=== PATIENT | male | born 1940 | race Caucasian/White ===

== ENCOUNTER 2019-12-13 07:49 | Observation (INO) | payer MEDICARE, OTHER ==
[2019-12-09 14:22] LABS: BASOPHILS # (AUTO) 0.1 (0.0-0.1); BASOPHILS % 1.2 % (0.0-1.0); EOSINOPHILS # (AUTO) 0.2 (0.0-0.4); EOSINOPHILS % 3.1 % (0.0-6.0); HEMATOCRIT 42.5 % (38.2-49.6); LYMPHOCYTES # (AUTO) 1.7 (1.0-3.2); LYMPHOCYTES % 31.7 % (18.0-39.1); MEAN CORPUSCULAR HEMOGLOBIN 28.1 pg (28-32); MEAN CORPUSCULAR HGB CONC 32.9 g/dL (31-35); MEAN CORPUSCULAR VOLUME 85.2 fL (81-99); MONOCYTES # (AUTO) 0.7 (0.2-0.8); MONOCYTES % 13.8 % (4.4-11.3); NEUTROPHILS # (AUTO) 2.6 (2.1-6.9); PLATELET COUNT 169 x10e3/uL (140-360); RED BLOOD COUNT 4.99 x10e6/uL (4.3-5.7); RED CELL DISTRIBUTION WIDTH 12.6 % (11.7-14.4)
[2019-12-09 14:37] LABS: ANION GAP 15.4 mmol/L (8-16); BLOOD UREA NITROGEN 48 mg/dL (7-26); BUN/CREATININE RATIO 52 (6-25); CALCIUM 9.6 mg/dL (8.4-10.2); CARBON DIOXIDE 28 mmol/L (22-29); CHLORIDE 99 mmol/L (98-107); CREATININE, SERUM 0.92 mg/dL (0.72-1.25); EST GLOMERULAR FILTRATION RATE > 60 ML/MIN (60-); GLUCOSE 97 mg/dL (74-118); POTASSIUM 4.4 mmol/L (3.5-5.1); SODIUM 138 mmol/L (136-145)
--- NOTE | 2019-12-09 14:39 | Diagnostic Imaging Report ---
EXAM: CHEST 2 VIEWS DATE: 12/09/2019 2:09 PM INDICATION: Preoperative evaluation COMPARISON: 03/02/2016 FINDINGS: The trachea is midline. The lungs are symmetrically expanded without evidence for large focal consolidation, pneumothorax, or significant pleural effusion. The cardiomediastinal silhouette is stable in appearance. Atherosclerotic calcifications are noted within the aortic arch. There are degenerative changes of the visualized spine. No acute osseous abnormality is identified. Surgical clips noted within the right upper quadrant. IMPRESSION: No acute cardiopulmonary process identified. Signed by: Dr. Alejandro Coronado MD on 12/09/2019 2:36 PM
[2019-12-13] VITALS (8 sets, daily range): BP systolic 106–149; BP diastolic 54–89
[~2019-12-13] VITALS: Ht 172.7 cm; Wt 111.1 kg
[~2019-12-13 07:49] MED LIST: AMBIEN10 MG PO; AMLODIPINE BESY10 MG PO; AMLODIPINE BESYL5 MG PO; ASPIR 8181 MG PO; ATORVASTATIN CA40 MG PO; CARAFATE1 GM PO; DEXILANT60 MG PO; DIOVAN320 MG PO; ELIQUIS5 MG PO; EXFORGE 10-3201 EACH PO; FLOMAX0.4 MG PO; FUROSEMIDE40 MG PO; NORCO 10-325 T1 EACH PO; PANTOPRAZOLE SO40 MG PO; PLAVIX75 MG PO; VIIBRYD1 EACH
[2019-12-13] MEDS ORDERED: LIDOCAINE 1% W/EPINEPHRINE 20 ML VIAL ONE ×2 (09:30→10:50)
[2019-12-13] MEDS ORDERED: MIDAZOLAM HCL 2 MG/2 ML VIAL ONE (09:30)
[2019-12-13] MEDS ORDERED: FENTANYL CITRATE/PF 100MCG/2 ML INJ ONE (09:31)
[2019-12-13] MEDS ORDERED: BACITRACIN 50,000 UNIT VIAL ONE (09:31)
[2019-12-13] MEDS ORDERED: CEFAZOLIN SOD 1 GM VIAL ONE (09:32)
[2019-12-13] MEDS ORDERED: SODIUM CHLORIDE 0.9% 500ML 1,000 ML ONE (09:33)
[2019-12-13] MEDS ORDERED: SODIUM CHLORIDE 0.9% 50ML 50 ML ONE (09:33)
[2019-12-13] MEDS ORDERED: SODIUM CHLORIDE 0.9% 1000ML 1,000 ML ONE (09:33)
[2019-12-13 09:45] LABS: INR 1.02
[2019-12-13 09:46] LABS: PARTIAL THROMBOPLASTIN TIME 35.1 seconds (23.8-35.5)
[2019-12-13] MEDS ORDERED: DIAZEPAM 5 MG TAB ONE (09:49)
[2019-12-13] MEDS ORDERED: METOPROLOL TARTRATE INJ 1 MG/ML VIAL ONE ×2 (11:24→11:27)
[2019-12-13] MEDS ORDERED: CLONIDINE HCL 0.1 MG TAB PO PRN (11:45)
[2019-12-13] MEDS: ATENOLOL 50 MG TAB PO SCH ×2 (11:45→17:30)
--- OUTSIDE RECORDS SUMMARY | 2019-12-13 11:55 | XMS REPORT | Continuity of Care Document ---
Author Author [facility] t Organization [facility] Address [address] [place] [address] Phone Unavailable Care Team Providers Care Clearance Rep Name Role Phone Leatha Olson DO PCP GEETHA AUGUSTE Attphys Unavailable Leatha Olson DO Attphys [phone] Payers Payer Name Policy Type Policy Number Effective Date Expiration Date S anu UHC MEDICAREUHC MEDICARE HMO/PPOxxxxxxxxx2017-[id number] xxxxxxxxx 2017 00:00:00 Naresh Sam Problems Condition Name Condition Details Condition Category Status Onset Date Resolution Date Last Treatment Date Treating Clinician Comments Source Primary hypertension Primary hypertension Disease Active 00:00:00 Naresh Sam 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 Dis ease Active 2018-03-19 00:00:00 Naresh Sam Chest pain in adult Chest pain in adult Disease Active 2018-03-18 00:00 :00 Naresh Sam Diarrhea of presumed infectious origin Diarrhea of presumed infectious origin Disease Active 2018-03-18 00:00:00 Naresh Sam Chronic atrial fibrillation Chronic atrial fibrillation Disease Active 2018-03-18 00:00:00 Naresh Sam Allergies, Adverse Reactions, Alerts Allergy Name Allergy Type Status Severity Reaction(s) Onset Date Inacti ve Date Treating Clinician Comments Source Nitrofurantoin Monohyd/M-Cryst Propensity to adverse reactions to d rug Active GI Intolerance 2018-03-18 00:00:00 [place] [facility] Metronidazole Propensity to adverse reactions to drug Active GI Intolerance 2018-03-18 00:00:00 [facility] Tetanus Vaccines And Toxoid Propensity to adverse reactions to drug A ctive 2018-03-18 00:00:00 [facility] Marshall-Dur Propensity to adverse reactions to drug Active 2018-03-18 00:00:00 Naresh Sam Social History Social Habit Start Date Stop Date Quantity Comments Source History of tobacco use Current smoker Naresh Sam Sex Assigned At [facility] Cigarettes smoked current (pack per day) - Reported 00:00:00 2019-04-30 00:00:00 Naresh Sam Cigarette pack-years 2019-04-30 00:00:00 2019-04-30 00:00:00 Naresh Sam Alcohol intake 2019-04-30 00:00:00 2019-04-30 00:00:00 Current non-drinker of alcohol (finding) Naresh Sam Smoking Status Start Date Stop Date Source Former smoker 2019-04-30 00:00:00 2019-04-30 00:00:00 Naresh Sam Medications Ordered Medication Name Filled Medication Name Start Date Stop Da te Current Medication? Ordering Clinician Indication Dosage Frequency Signature (SIG) Comments Components Source amLODIPine (NORVASC) 5 mg tablet 2019-04-30 10:14:48 Yes 5mg QD Take 5 mg by mouth daily. Naresh Sam apixaban (ELIQUIS) 5 mg tablet 2019-04-30 10:14:48 Yes 5mg Q.5D Take 5 mg by mouth 2 (two) times a day. Naresh Sam metoprolol succinate XL (TOPROL-XL) 25 mg 24 hr tablet 2019-04-30 10:14:48 Yes 25mg QD Take 25 mg by mouth daily. Naresh Sam furosemide (LASIX) 40 mg tablet 2019-04-30 10:14:48 Yes 40mg Q.[id number] Take 40 mg by mouth 3 (three) times a day. Naresh Sam tamsulosin (FLOMAX) 0.4 mg capsule 2019-04-30 10:14:48 Yes .4mg QD Take 0.4 mg by mouth daily. Naresh Sam ergocalciferol, vitamin D2, (VITAMIN D2 ORAL) 2019-04-30 10:14:4 8 Yes 1{tbl} QD Take 1 tablet by mouth daily. Naresh Sam cyanocobalamin, vitamin B-12, (VITAMIN B-12 ORAL) 2019-04-30 10:14:48 Yes 1{tbl} QD Take 1 tablet by mouth daily. Naresh Sam promethazine-codeine (PHENERGAN with CODEINE) 6.25-10 mg/5 m L syrup 2019-04-30 00:00:00 2019-05-07 23:59:00 No acute pain Acute Pain, Cough. TK 5 ML PO Q 8 H PRN. Limit 15 ML IN 24 H Naresh wagner olmesartan (BENICAR) 40 MG tablet 2019-04-25 09:27:59 Yes 40mg QD Take 40 mg by mouth daily. Naresh Sam benzonatate (TESSALON) 100 MG capsule 2019-04-25 00:00:00 Yes Cough 100mg Q.[id number] Take 1 capsule (100 mg total) by mouth 3 (three) times a day as needed for cough for up to 30 doses. Naresh Sam albuterol (PROAIR HFA) 90 mcg/actuation inhaler 2019-04-25 00:00:00 2020-04-24 23:59:00 No Cough 2{puff} Q6H Inhale 2 puffs every 6 (six) hours as needed for wheezing. Naresh Sam methylPREDNISolone (MEDROL, OBED,) 4 mg tablet 20 27-04-17 00:00:00 2019-04-30 23:59:00 No Cough follow package directions Naresh Sam promethazine-codeine (PHENERGAN with CODEINE) 6.25-10 mg/5 m L syrup 2019-04-17 00:00:00 2019-04-30 00:00:00 No Cough TK 5 ML PO Q 6 H PRN. NTE 30 ML IN 24 H Naresh Sam Immunizations Ordered Immunization Name Filled Immunization Name Date Status Comments Source FLUCELVAX QUAD PF 2018-03-20 00:00:00 Completed Naresh Sam Vital Signs Vital Name Observation Time Observation Value Comments Source Systolic blood pressure 2019-04-30 10:09:00 135 mm[Hg] Naresh Sam Diastolic blood pressure 2019-04-30 10:09:00 77 mm[Hg] Naresh Sam Heart rate 2019-04-30 10:09:00 85 /min Naresh Sam Body temperature 2019-04-30 10:09:00 37.06 [place] [facility] Respiratory rate 2019-04-30 10:09:00 18 /min Flore[facility]i [facility] Body height 2019-04-30 10:09:00 172.7 cm [place] [facility] Body weight 2019-04-30 10:09:00 90.719 kg Naresh Sam BMI 2019-04-30 10:09:00 30.41 kg/m2 Naresh Sam Oxygen saturation in Arterial blood by Pulse oximetry 2018-07 10:09:00 97 /min Naresh Sam Procedures Procedure Date / Time Performed Performing Clinician Sourc e XR CHEST 2 VW 2019-04-25 11:34:46 Zhou Olson CBC WITH PLATELET AND DIFFERENTIAL 2019-04-25 09:59:00 Zhou Salamanca Plan of Care Planned Activity Planned Date Details Comments Source Future Scheduled Test 2020-02-08 00:00:00 INFLUENZA VACCINE [code = INFLUENZA VACCINE] Naresh Sam Future Scheduled Test 2005 00:00:00 65+ PNEUMOCOCCAL V ACCINE (1 of 2 - PCV13) [code = 65+ PNEUMOCOCCAL VACCINE (1 of 2 - PCV13)] Naresh Sam Future Scheduled Test 1990 00:00:00 SHINGLES VACCINES (#1) [code = SHINGLES VACCINES (#1)] Naresh Sam Results Test Description Test Time Test Comments Results Result Comments Source CHEST 2 VIEWS 2019-12-09 14:35:00 [facility] [address] [place] [address] Patient Name: LYNNE IRBY MR #: [id number] : 1940 Age/Sex: 79/M Req #: [id number] Adm Physician: Ordered by: GEETHA AUGUSTE MD Report #: [id number] 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 The lungs are symmetrically expanded without evidence for large focal consolidation, pneumothorax, or significant pleural effusion. The cardiomediastinal silhouette is stable in appearance. Atherosclerotic calcifications are noted within the aortic arch. There are degenerative changes of the visualized spine. No acute osseous abnormality is identified. Surgical clips noted within the right upper quadrant. IMPRESSION: No acute cardiopulmonary process identified. Signed by: Dr. Alejandro Coronado MD on 12/09/2019 2:36 PM Dictated By: ALEJANDRO CORONADO MD 143 Transcribed By: DAMIR on 12/09/19 1436 COPY TO: GEETHA AUGUSTE MD CBC with platelet and differential 2019-04-26 01:44:00 Test Item WBC (test code = 6690-2) 7.5 3.8- 10.8 Thousand/uL RBC (test code = 789-8) 4.61 4.20- 5.80 Million/uL HGB (test code = 718-7) 13.6 g/dL 13.2-17.1 HCT (test code = 4544-3) 40.9 % 38.5-50 MCV (test code = 787-2) 88.7 fL 80-100 MCH (test code = 785-6) 29.5 pg 27-33 MCHC (test code = 786-4) 33.3 g/dL 32-36 RDW (test code = 788-0) 13.1 % 11-15 Platelet count (test code = 777-3) 284 140- 400 Thousand/u L MPV (test code = 776-5) 9.3 fL 7.5-12.5 Neutrophils, absolute (test code = 751-8) 5370 1,500 - 7,80 0 cells/uL Lymphocytes, absolute (test code = 731-0) 1170 850- 3,900 c ells/uL Monocytes, absolute (test code = 742-7) 795 200- 950 cells /uL Eosinophils, absolute (test code = 711-2) 98 15- 500 cell s/uL Basophils, absolute (test code = 704-7) 68 0- 200 cells/u L Neutrophils (test code = 770-8) 71.6 % Lymphocytes (test code = 736-9) 15.6 % Monocytes (test code = 5905-5) 10.6 % Eosinophils (test code = 713-8) 1.3 % Basophils + RC (test code = 706-2) 0.9 % WOLF (test code = WOLF) FASTING:YESFASTING: YES RAC (test code = RAC) Performing Organization Info rmation: Site ID: [id number] Name: [facility] Address: [address] [place] [id number] Director: Chavez SamXR Chest 2 [id number] 11:47:42Hm Interface, Radiology Results Incoming - 04/25/2019 11:50 AM CDTEXAMINATION: XR CHEST 2 VWCLINICAL HISTORY: R05 Cough, Cough new onsetCOMPARISON: To previous study from 03/18/2018IMPRESSION:The cardiomediastinal silhouette is normal in appearance.The lungs are clear. There is no evidence of consolidation, congestion, or pneumothorax.A pleural effusion is not present.Arthritic changes are noted involving the spine. [id number] [facility]
--- OUTSIDE RECORDS SUMMARY | 2019-12-13 11:55 | XMS REPORT | Clinical Summary ---
Author Author [facility] Organization [facility] Address Unknown Phone Unavailable Care Team Providers Care Geography Professor Name Role Phone Zhou Olson DO PCP Allergies Comments Active Allergy Reactions Severity Noted Date Nitrofurantoin GI Medium 03/18/2018 Monohyd/M-Cryst Intolerance Metronidazole GI Medium 03/18/2018 Intolerance Tetanus Vaccines And 03/18/2018 Toxoid Marshall-Dur 03/18/2018 Medications End Date Status Medication Sig Dispensed Refills Start Date Active olmesartan (BENICAR) 40 Take 40 mg by 0 MG tablet mouth daily. Active amLODIPine (NORVASC) 5 mg Take 5 mg by 0 tablet mouth daily. Active apixaban (ELIQUIS) 5 mg Take 5 mg by 0 tablet mouth 2 (two) times a day. Active metoprolol succinate XL Take 25 mg by 0 (TOPROL-XL) 25 mg 24 hr mouth daily. tablet Active furosemide (LASIX) 40 mg Take 40 mg by 0 tablet mouth 3 (three) times a day. Active tamsulosin (FLOMAX) 0.4 Take 0.4 mg 0 mg capsule by mouth daily. Active ergocalciferol, vitamin Take 1 tablet 0 D2, (VITAMIN D2 ORAL) by mouth daily. Active cyanocobalamin, vitamin Take 1 tablet 0 B-12, (VITAMIN B-12 ORAL) by mouth daily. Active benzonatate (TESSALON) Take 1 30 capsule 0 100 MG capsule (100 9 capsuleIndications: Cough mg total) by mouth 3 (three) times a day as needed for cough for up to 30 doses. 04/24/2020 Active albuterol (PROAIR HFA) 90 Inhale 2 18 g 0 mcg/actuation puffs every 6 9 inhalerIndications: Cough (six) hours as needed for wheezing. 04/30/2019 Discontinued (Reorder) promethazine-codeine TK 5 ML PO Q 0 (PHENERGAN with CODEINE) 6 H PRN. NTE 9 6.25-10 mg/5 mL 30 ML IN 24 H syrupIndications: Cough 04/30/2019 methylPREDNISolone follow 21 tablet 0 01 (MEDROL, OBED,) 4 mg package 9 tabletIndications: Cough directions 05/07/2019 promethazine-codeine Acute Pain, 118 mL 0 04/30 (PHENERGAN with CODEINE) Cough. TK 5 9 6.25-10 mg/5 mL ML PO Q 8 H syrupIndications: acute PRN. Limit 15 pain, Cough ML IN 24 H Active Problems Problem Noted Date Primary hypertension 03/19/2018 BPH without urinary obstruction 03/19/2018 Chest pain in adult 03/18/2018 Diarrhea of presumed infectious origin 03/18/2018 Chronic atrial fibrillation 03/18/2018 Encounters Care Team Description Date Type Specialty Zhou Olson, DO Cough (Primary Dx); Other fatigue 04/30/2019 Office Visit Family Medicine Zhou Olson, DO 04/30/2019 Telephone Family Medicine Zhou Olson, DO Cough 04/25/2019 [facility] Radiology Encounter Zhou Olson, DO Cough (Primary Dx); BMI 31.0-31.9,adult 04/25/2019 Office Visit Family Medicine after 12/12/2018 Immunizations Name Administration Dates Next Due FLUCELVAX QUAD PF 03/20/2018 (Deferred: Other - see documentation below), 03/20/2018 Family History Relation Name Status Comments Brother Father (Age 62) Maternal Grandfather Maternal Grandmother Mother (Age 87) Paternal Grandfather Paternal Grandmother Sister Social History Date Tobacco Use Types Packs/Day Years Used Quit: 1985 Former Smoker Cigarettes 2 19 Smokeless Tobacco: Never Used Drinks/Week oz/Week Comments Alcohol Use No Sex Assigned at Date Recorded Not on file Industry Job Start Date Occupation Not on file Not on file Not on file Travel End Travel History Travel Start No recent travel history available. Last Filed Vital Signs Reading Time Taken Comments Vital Sign 135/77 04/30/2019 10:09 AM CDT Blood Pressure 85 04/30/2019 10:09 AM CDT Pulse 37.1 C (98.7 F) 04/30/2019 10:09 AM CDT Temperature 18 04/30/2019 10:09 AM CDT Respiratory Rate 97% 04/30/2019 10:09 AM CDT Oxygen Saturation - - Inhaled Oxygen Concentration 90.7 kg (200 lb) 04/30/2019 10:09 AM CDT Weight 172.7 cm (5' 8") 04/30/2019 10:09 AM CDT Height 30.41 04/30/2019 10:09 AM CDT Body Mass Index Plan of Treatment Health Maintenance Due Date Last Done Comments SHINGLES VACCINES (#1) 1990 65+ PNEUMOCOCCAL VACCINE 2005 (1 of 2 - PCV13) INFLUENZA VACCINE 02/08/2020 03/20/2018 Procedures Comments Procedure Name Priority Date/Time Associated Diag nosis XR CHEST 2 VW Routine 04/25/2019 Cough 11:34 AM CDT CBC WITH PLATELET AND Routine 04/25/2019 Cough DIFFERENTIAL 9:59 AM CDT after 12/12/2018 Results * XR Chest 2 Vw (04/25/2019 11:34 AM CDT) Specimen Narrative Performed At EXAMINATION: XR CHEST 2 VW [facility] CLINICAL HISTORY: R05 Cough, Cough new onset COMPARISON: To previous study from 03/18/2018 IMPRESSION: The cardiomediastinal silhouette is nor mal in appearance. The lungs are clear. There is no eviden ce of consolidation, congestion, or pneumothorax. A pleural effusion is not present. Arthritic changes are noted involving t he spine. [id number] Procedure Note Hm Interface, Radiology Results Incoming - 04/25/2019 11:50 AM CDT EXAMINATION: XR CHEST 2 VW CLINICAL HISTORY: R05 Cough, Cough new onset COMPARISON: To previous study from 03/18/2018 IMPRESSION: The cardiomediastinal silhouette is normal in appearance. The lungs are clear. There is no evidence of consolidation, congestion, or pneumothorax. A pleural effusion is not present. Arthritic changes are noted involving the spine. [id number] Performing Organization Address City/State/Zipcode one Number [facility] [address] [place] [address] * CBC with platelet and differential (04/25/2019 9:59 AM CDT) WBC 7.5 3.8 - 10.8 [facility] Thousand/uL [facility] RBC 4.61 4.20 - 5.80 [facility] Million/uL [facility] HGB 13.6 13.2 - 17.1 g/dL [facility] HCT 40.9 38.5 - 50.0 % [facility] MCV 88.7 80.0 - 100.0 fL [facility] MCH 29.5 27.0 - 33.0 pg [facility] MCHC 33.3 32.0 - 36.0 g/dL [facility] RDW 13.1 11.0 - 15.0 % [facility] Platelet count 284 140 - 400 [facility] Thousand/uL [facility] MPV 9.3 7.5 - 12.5 fL [facility] Neutrophils, 5,370 1,500 - 7,800 [facility] absolute cells/uL [facility] Lymphocytes, 1,170 850 - 3,900 cells/uL [facility] Monocytes, 795 200 - 950 cells/uL [facility] Eosinophils, 98 15 - 500 cells/uL [facility] Basophils, 68 0 - 200 cells/uL [facility] Neutrophils 71.6 % [facility] Lymphocytes 15.6 % [facility] Monocytes 10.6 % [facility] Eosinophils 1.3 % [facility] Basophils + RC 0.9 % [facility] Specimen Blood Narrative Performed At FASTING:YES [facility] FASTING: YES Resulting Agency Comment Performing Organization Information: Site ID: [id number]: [facility] Address: [address] [place] [address] Director: Chavez Iverson Performing Organization Address City/State/[facility] Ph one Number [facility] [employer] [facility] [address] [place] [address] [phone] after 12/12/2018 Insurance Type Payer Benefit Subscriber ID Effective Phone Address Plan / Dates Group HMO [facility] MEDICARE [facility] xxxxxxxxx 2017-P MEDICARE resent HMO/PPO Advance Directives For more information, please contact: [phone] Patient General Passenger Agent Explanation Type Date Recorded Advance Directives, Living Will and Medical Power of Tape Controlled Machine Stitcher
[2019-12-13] MEDS ORDERED: HYDROCODONE/APAP 5MG-325MG TAB PO PRN (12:00)
[2019-12-13] MEDS ORDERED: CEFAZOLIN SOD 1 GM/NS 50ML 50 ML IV ONE (12:00)
[2019-12-13] MEDS ORDERED: CEFAZOLIN SOD 1 GM VIAL IV SCH (12:00)
--- NOTE | 2019-12-13 12:17 | NUR ---
RECEIVED TO RM AAOX3 NO DISTRESS NOTED, UPDATED ON POC VOICED UNDERSTANDING, SLING TO L ARM, DSG TO LEFT UPPER CHEST STERI STRIPS INTACT, R HAND 20G NO SS OF INFILTRATION NOTED, NO OTHER CO VOICED DENIES PAIN AT THIS TIME, CALL LIGHT IN REACH WILL CONTINUE TO MONITOR
[2019-12-13] MEDS: HYDROCODONE/APAP 5MG-325MG TAB PO PRN ×3 (13:08→22:38)
[2019-12-13] MEDS: CEFAZOLIN SOD 1 GM/NS 50ML 50 ML IV SCH ×2 (13:55→17:40)
--- NOTE | 2019-12-13 15:53 | Diagnostic Imaging Report ---
X-ray chest AP portable Comparison: 12/09/2019 History: Post pacemaker insertion Findings: Status post left subclavian route single-chamber pacemaker placement the expected position of the battery pack and the pacer wire. No pneumothorax. No pleural effusion. Other findings remain unchanged. Impression: As above. Signed by: Pino Chang MD on 12/13/2019 3:49 PM
[2019-12-13] MEDS: APIXAB 2.5 MG TABLET PO SCH (17:30)
[2019-12-13] MEDS ORDERED: TAMSULOSIN HCL 0.4 MG CAP PO SCH (21:00)
[2019-12-14 00:49] VITALS: BP 119/68
[2019-12-14 05:39] VITALS: BP 113/61
[2019-12-14] MEDS: CEFAZOLIN SOD 1 GM/NS 50ML 50 ML IV SCH ×3 (05:58→12:15)
[2019-12-14 06:25] LABS: BASOPHILS # (AUTO) 0.1 (0.0-0.1); BASOPHILS % 1.3 % (0.0-1.0); EOSINOPHILS # (AUTO) 0.2 (0.0-0.4); EOSINOPHILS % 3.7 % (0.0-6.0); HEMATOCRIT 41.8 % (38.2-49.6); HEMOGLOBIN 13.6 g/dL (14.0-18.0); LYMPHOCYTES # (AUTO) 1.5 (1.0-3.2); LYMPHOCYTES % 26.7 % (18.0-39.1); MEAN CORPUSCULAR HEMOGLOBIN 27.8 pg (28-32); MEAN CORPUSCULAR HGB CONC 32.5 g/dL (31-35); MEAN CORPUSCULAR VOLUME 85.3 fL (81-99); MONOCYTES # (AUTO) 0.7 (0.2-0.8); MONOCYTES % 13.4 % (4.4-11.3); NEUTROPHILS % 54.5 % (38.7-80.0); PLATELET COUNT 181 x10e3/uL (140-360); RED CELL DISTRIBUTION WIDTH 12.7 % (11.7-14.4)
[2019-12-14] MEDS: HYDROCODONE/APAP 5MG-325MG TAB PO PRN ×2 (06:29→11:54)
[2019-12-14 06:41] LABS: INR 1.05; PROTHROMBIN TIME 14.4 seconds (11.9-14.5)
--- NOTE | 2019-12-14 06:46 | Diagnostic Imaging Report ---
EXAMINATION: CHEST SINGLE (PORTABLE) COMPARISON: Chest x-ray 12/13/2019 INDICATION: ^PACEMAKER PLACEMENT ^[id number] ^[id number] DISCUSSION: Frontal view of the chest obtained at 0612 hours. HEART AND MEDIASTINUM: Stable mild cardiomegaly LINES: AICD lead terminates in the right ventricle without pneumothorax LUNGS/PLEURA: Diffuse hyperinflation suggestive of small airways disease. Central cardiovascular is prominent and stable. No pneumonia or pulmonary edema. No pleural effusion or pneumothorax. BONES AND SOFT TISSUES: Unremarkable. IMPRESSION: Stable cardiomegaly and pulmonary vascular prominence. No acute pulmonary process. Signed by: Dr. Mac Molina MD on 12/14/2019 6:42 AM
[2019-12-14 06:47] LABS: ALANINE AMINOTRANSFERASE 16 IU/L (0-55); ALBUMIN 3.5 g/dL (3.5-5.0); ALBUMIN/GLOBULIN RATIO 1.3 (0.8-2.0); ALKALINE PHOSPHATASE 56 IU/L (40-150); ANION GAP 13.7 mmol/L (8-16); BLOOD UREA NITROGEN 25 mg/dL (7-26); BUN/CREATININE RATIO 29 (6-25); CALCIUM 8.8 mg/dL (8.4-10.2); CARBON DIOXIDE 26 mmol/L (22-29); CHLORIDE 104 mmol/L (98-107); CREATININE, SERUM 0.85 mg/dL (0.72-1.25); EST GLOMERULAR FILTRATION RATE > 60 ML/MIN (60-); GLUCOSE 93 mg/dL (74-118); POTASSIUM 3.7 mmol/L (3.5-5.1); SODIUM 140 mmol/L (136-145)
--- NOTE | 2019-12-14 07:00 | NUR ---
bedside rounds complete no distress noted, pt in stable condition, updated on poc vocied understanding, deneis pain at this time, sling to left arm, dsg to left upper chest intact, minimal drainage noted, no other co voiced call light in reach will continue to monitor
[2019-12-14] MEDS: APIXAB 2.5 MG TABLET PO SCH (08:10)
[2019-12-14] MEDS: ATENOLOL 50 MG TAB PO SCH (08:11)
[2019-12-14 08:15] VITALS: BP 130/59
[2019-12-14 08:28] VITALS: BP 130/59
[2019-12-14] MEDS ORDERED: FUROSEMIDE 20 MG TAB PO SCH (09:00)
[2019-12-14 13:04] VITALS: BP 112/60
[2019-12-14] MEDS ORDERED: ULTRAM 50MG50 MG PO (13:32)
--- NOTE | 2019-12-15 01:31 | Operative Report ---
DATE OF PROCEDURE: 12/13/2019 SURGEON: Skinny Georges MD DIAGNOSES: 1. Sick sinus syndrome with Christ tachyarrhythmia. 2. Chronic atrial fibrillation. 3. Aortic stenosis. 4. Hypertension. PROCEDURE: Implantation of a permanent ventricular pacemaker. ANESTHESIA: 1. Local anesthetic to the left infraclavicular area. 2. Moderate sedation. BLOOD LOSS: Minimal. COMPLICATION: None. IMPLANTS: A permanent pacemaker model [facility] MRI SR, the model number is [id number]. DESCRIPTION OF PROCEDURE: After the usual prepping and draping the left infraclavicular area was infiltrated with local lidocaine. The previous venogram from the left brachial vein was performed and the left subclavian vein was then punctured percutaneously. A guidewire was inserted and positioned at the level of the right atrium. On the further local anesthetic application, an incision was then made and a pocket prepared for the pacemaker generator. Dilator and sheath were then inserted over the guidewire and after removal of the dilator and the guidewire, a ventricular electrode was inserted and advanced into the apex of the right ventricle. After adequate thresholds were obtained, the lead was secured with a typical screw-in type mechanism at the apex of the right ventricle and secured with 2-0 silk sutures over the sleeve at the site of the pocket. The pocket was inspected for any bleeding and after adequate hemostasis was achieved, the pocket was lavaged with antibiotic solution. The pacemaker generator was then connected to the ventricular electrode position in the pocket and secured with 2-0 silk suture. Subcutaneous tissue was closed with continuous suture. The skin was closed with interrupted sutures. Dressing was applied and the patient was transferred to the observation area in stable condition. There were no complications and the procedure was well tolerated. The threshold at the time of implantation was to followup. The R-wave sensitivity was 5.4 mV. The resistance was 678 ohms. The stimulation threshold was 1 V. The pacemaker was programmed to VVIR with basic tracking rate of 60 and upper tracking rate of 100. The unit is bipolar unit as is the ventricular electrode being also bipolar. Skinny Georges MD [facility]/MODL /[id number]
== END 2019-12-14 15:01 | disposition home or self-care (01) ==
LOC: CATH LAB 07:49 → EDSTATUS 10:00 → CATH LAB V 11:47 → MED/SURG 12:10
PROVIDERS: ADMIT Internal Medicine Cardiovascular Disease; ATTEND Internal Medicine Cardiovascular Disease
DX: I49.5 Sick sinus syndrome (principal); R06.02 Shortness of breath; R42 Dizziness and giddiness; Z01.812 Encounter for preprocedural laboratory examination; Z01.818 Encounter for other preprocedural examination; Z11.59 Encounter for screening for other viral diseases; I48.20 Chronic atrial fibrillation, unspecified; Z79.01 Long term (current) use of anticoagulants; I35.0 Nonrheumatic aortic (valve) stenosis; I10 Essential (primary) hypertension; N40.0 Benign prostatic hyperplasia without lower urinary tract symptoms
CPT/HCPCS: 33207; 33225; 36415 ×3; 71045 ×2; 71046; 80048; 80053; 85025 ×2; 85610 ×2; 85730; 87635; 93005; C1786; C1898; G0378 ×2; J0690 ×3; J2250; J3010; J7030; J7040; 99152; 99153

== ENCOUNTER 2020-11-22 16:42 | Emergency (ER) | payer MEDICARE ==
[~2020-11-22] VITALS: Ht 172.7 cm; Wt 111.1 kg
[~2020-11-22 16:42] MED LIST changes: +ULTRAM 50MG50 MG PO
[2020-11-22] MEDS ORDERED: ASPIRIN 81 MG CHEW TAB PO ONE ×2 (17:45→23:15)
[2020-11-22] MEDS ORDERED: CITRATE OF MAGNESIA 300ML BOTTLE PO ONE ×2 (18:30→23:15)
[2020-11-22] MEDS ORDERED: MINERAL OIL 132 ML BTL PR ONE ×2 (18:30→23:15)
[2020-11-22] MEDS ORDERED: LACTULOSE SYRUP 20 GM/30 ML UDC PO ONE ×2 (18:30→23:15)
[2020-11-22] MEDS ORDERED: DIATRIZOATE MEGL/DIATRIZOA SOD 30 ML BTL PO ONE (18:35)
[2020-11-22 18:51] LABS: BASOPHILS # (AUTO) 0.2 (0.0-0.1); BASOPHILS % 1.7 % (0.0-1.0); EOSINOPHILS # (AUTO) 0.3 (0.0-0.4); EOSINOPHILS % 3.1 % (0.0-6.0); HEMATOCRIT 42.4 % (38.2-49.6); HEMOGLOBIN 14.6 g/dL (14.0-18.0); LYMPHOCYTES # (AUTO) 1.6 (1.0-3.2); LYMPHOCYTES % 18.1 % (18.0-39.1); MEAN CORPUSCULAR HEMOGLOBIN 28.5 pg (28-32); MEAN CORPUSCULAR HGB CONC 34.4 g/dL (31-35); MEAN CORPUSCULAR VOLUME 82.7 fL (81-99); MONOCYTES # (AUTO) 1.1 (0.2-0.8); MONOCYTES % 12.6 % (4.4-11.3); NEUTROPHILS # (AUTO) 5.6 (2.1-6.9); PLATELET COUNT 214 x10e3/uL (140-360); RED BLOOD COUNT 5.13 x10e6/uL (4.3-5.7); RED CELL DISTRIBUTION WIDTH 15.8 % (11.7-14.4)
[2020-11-22 21:07] LABS: ALANINE AMINOTRANSFERASE 22 IU/L (0-55); ALBUMIN 3.8 g/dL (3.5-5.0); ALBUMIN/GLOBULIN RATIO 1.2 (0.8-2.0); ALKALINE PHOSPHATASE 55 IU/L (40-150); ANION GAP 15.2 mmol/L (8-16); BLOOD UREA NITROGEN 18 mg/dL (7-26); BUN/CREATININE RATIO 17 (6-25); CALCIUM 9.1 mg/dL (8.4-10.2); CARBON DIOXIDE 31 mmol/L (22-29); CHLORIDE 90 mmol/L (98-107); CREATINE KINASE 319 IU/L (30-200); CREATININE, SERUM 1.06 mg/dL (0.72-1.25); EST GLOMERULAR FILTRATION RATE > 60 ML/MIN (60-); GLUCOSE 109 mg/dL (74-118); POTASSIUM 4.2 mmol/L (3.5-5.1); SODIUM 132 mmol/L (136-145)
[2020-11-22] MEDS ORDERED: SODIUM CHLORIDE 0.9% 50ML 50 ML ONE (21:51)
[2020-11-22] MEDS ORDERED: IOPAMIDOL 370 MG/ML 200 ML INFUS..BTL INJ ONE (21:51)
[2020-11-22] MEDS ORDERED: CITRATE OF MAGNESIA 300ML BOTTLE ONE (23:21)
[2020-11-22] MEDS ORDERED: SOD PHOSPHATE/SOD BIPHOSPHATE ENEMA 132 ML BTL PR ONE (23:23)
[2020-11-22 23:40] VITALS: BP 120/70
== END 2020-11-22 23:54 | disposition home or self-care (01) ==
LOC: ER 17:34
DX: R10.9 Unspecified abdominal pain (principal); K57.90 Diverticulosis of intestine, part unspecified, without perforation or abscess without bleeding; K42.9 Umbilical hernia without obstruction or gangrene
CPT/HCPCS: 36415; 74177; 80053; 82550; 82553; 83690; 84484; 85025; 99283; Q9967